=== PATIENT | female | born 1995 | race Caucasian/White ===

== ENCOUNTER → 2017-07-23 | Emergency (ER) | payer OTHER ==
[~2017-07-23] VITALS: Ht 162.6 cm; Wt 73.9 kg
[~2017-07-23] MED LIST: ENALAPRIL MALEAT5 MG PO; JENTADUETO XR1 EAC1 PO; LANTUS SOL100 UNIT/1 SUBCUTANEO; LEVSIN/SL0.125 MG SL; PEPCID20 MG PO; SYNTHROID100 MCG PO; TRICOR48 MG PO
== END | disposition home or self-care (01) ==
LOC: ER 15:29
DX: K52.9 Noninfective gastroenteritis and colitis, unspecified (principal)

== ENCOUNTER 2020-09-12 13:08 | Outpatient (CLI) | payer OTHER | END 2020-09-12 13:22 | disposition home or self-care (01) | LOC: SONOGRAMA 13:08 → MAMO-SONO 13:15 → SONOGRAMA 13:22 | PROVIDERS: ATTEND Specialist | DX: N85.8 Other specified noninflammatory disorders of uterus (principal); N92.1 Excessive and frequent menstruation with irregular cycle ==

== ENCOUNTER → 2020-10-24 08:45 | Outpatient (CLI) | payer OTHER | END | disposition home or self-care (01) | LOC: LAB 08:45 → EKG 08:45 | PROVIDERS: ATTEND Specialist | DX: Z01.811 Encounter for preprocedural respiratory examination (principal); Z01.810 Encounter for preprocedural cardiovascular examination ==

== ENCOUNTER → 2020-10-26 11:36 | Outpatient (CLI) | payer OTHER | END | disposition home or self-care (01) | LOC: LAB 11:36 | PROVIDERS: ATTEND Internal Medicine Cardiovascular Disease | DX: R05 Cough (principal); R06.2 Wheezing; R50.9 Fever, unspecified ==